=== PATIENT | male | born 1950 | race Caucasian/White ===

== ENCOUNTER 2021-06-10 09:26 | Inpatient (IN) ==
[~2021-06-10 09:26] MED LIST: ACETAMINOPHEN 500 MG TABLET PO ONE; ALVIMOPAN 12 MG CAPSULE ONE; FAMOTIDINE 20 MG TABLET PO ONE; GABAPENTIN 400 MG CAPSULE PO ONE; SODIUM PHOSPHATE ENEMA 133 ML BOTTLE RECTAL ONE; cefTRIAXone 1,000 MG VIAL ONE
[2021-06-10] MEDS ORDERED: SODIUM PHOSPHATE ENEMA 133 ML BOTTLE RECTAL ONE (09:31)
[2021-06-10] MEDS ORDERED: cefTRIAXone 1,000 MG in SODIUM CHLORIDE 0.9% 100 ML IV STA (09:32)
[2021-06-10] MEDS: ALVIMOPAN 12 MG CAPSULE PO SCH ×2 (10:00→22:49)
[2021-06-10] MEDS ORDERED: ALBUTEROL/IPRATROPIUM 3 ML NEB RESP TX ONE (10:19)
[2021-06-10] MEDS ORDERED: DIAZEPAM 5 MG TABLET PO ONE (10:19)
[2021-06-10] MEDS ORDERED: LACTATED RINGERS 1,000 ML IV SCH (10:30)
[2021-06-10] MEDS ORDERED: fentaNYL 100 MCG/2 ML VIAL ONE ×3 (12:07→20:50)
[2021-06-10] MEDS ORDERED: GLYCOPYRROLATE 0.4 MG/2 ML VIAL ONE (12:07)
[2021-06-10] MEDS ORDERED: DEXAMETHASONE 4 MG/1 ML VIAL ONE ×2 (12:07→16:35)
[2021-06-10] MEDS ORDERED: ONDANSETRON 4 MG/2 ML VIAL ONE (12:07)
[2021-06-10] MEDS ORDERED: SUCCINYLCHOLINE 200 MG/10 ML VIAL ONE (12:07)
[2021-06-10] MEDS ORDERED: ROCURONIUM 50 MG/5 ML VIAL IV ONE ×2 (12:07→16:35)
[2021-06-10] MEDS ORDERED: LIDOCAINE 2% 5 ML VIAL ONE (12:07)
[2021-06-10] MEDS ORDERED: propofoL 200 MG/20 ML VIAL IV ONE (12:07)
[2021-06-10] MEDS ORDERED: cefTRIAXone 1,000 MG VIAL ONE (12:52)
[2021-06-10] MEDS ORDERED: hydrALAZINE 20 MG/1 ML VIAL ONE (13:24)
[2021-06-10] MEDS ORDERED: LACTATED RINGERS 1,000 ML IV ONE ×3 (13:28→16:44)
[2021-06-10] MEDS ORDERED: SEVOFLURANE 1 UNIT/15 MINUTE INH ONE ×9 (13:28→16:34)
[2021-06-10 13:54] LABS: Bilirubin,Urine Negative (Negative); Blood, Urine Small mg/dL (Negative); Glucose,Urine (UA) Negative (Negative); Ketones,Urine Negative (Negative); Mucus,Urine Occasional /LPF (Occasional); Nitrite,Urine Negative (Negative); Protein,Urine Negative; RBC,Urine 3 /HPF (0-4); Squamous Epithelial Cell,Urine Occasional /HPF (0-10); Urine Appearance Slightly Hazy (Clear); Urine Color Yellow (Yellow); Urine Specific Gravity 1.015 (1.001-1.035); Urine Urobilinogen < 2.0 EU/DL (0.2-1.0)
[2021-06-10] MEDS ORDERED: PHENYLEPHRINE 10 MG/1 ML VIAL IV ONE ×2 (14:21→15:47)
[2021-06-10] MEDS ORDERED: METOPROLOL TARTRATE 5 MG/5 ML VIAL IV ONE ×4 (14:32→16:17)
[2021-06-10] MEDS ORDERED: ESMOLOL 100 MG/10 ML VIAL IV ONE ×2 (14:36→15:44)
[2021-06-10] MEDS ORDERED: SODIUM CHLORIDE 0.9% 250 ML IV ONE (16:36)
[2021-06-10] MEDS ORDERED: NON-FORMULARY MEDICATION (Chlorpheniramine-Phenylephrine [Ed A-Hist] 4-10 mg Tablet) PO PRN (16:44)
[2021-06-10] MEDS ORDERED: oxyCODONE/ACETAMINOPHEN 5-325 MG TABLET PO PRN (16:48)
[2021-06-10] MEDS ORDERED: AMIODARONE 150 MG/3 ML VIAL ONE ×2 (17:01→17:16)
[2021-06-10 18:03] LABS: Basophils % 0.2 % (0.0-0.8); Eosinophils % 0.1 % (0.00-10.9); Hematocrit 46.2 VOL% (42.0-52.0); Hemoglobin 14.6 GM/DL (14.0-18.0); Immature Granulocytes % 0.5 %; Immature Granulocytes Absolute 0.06 #; Mean Corpuscular HGB Conc 31.6 GM/DL (32-36); Mean Corpuscular Volume 97.5 FL (87-102); Mean Platelet Volume 10.6 FL (9.6-12.0); Monocytes % 3.9 % (1.7-12.7); Neutrophils % 87.3 % (38.7-73.9); Platelet Count 202 T/CUMM (130-400); Red Blood Count 4.74 MC/CUMM (3.8-5.5); Red Cell Distribution Width 13.4 % (9.3-17.3)
[2021-06-10] MEDS ORDERED: ONDANSETRON 4 MG/2 ML VIAL IV PRN (18:20)
[2021-06-10 18:22] LABS: Calcium 8.8 MG/DL (8.5-10.1); Osmolality,Calculated 283.4 MOS/KG (273-304); Potassium 3.6 MMOL/L (3.5-5.1)
[2021-06-10] MEDS: HYDROmorphone 2 MG/1 ML VIAL IV PRN ×4 (18:23→19:25)
[2021-06-10] MEDS ORDERED: NITROGLYCERIN DRIP 50 MG/250 ML BOTTLE IV PRN (20:10)
[2021-06-10] MEDS ORDERED: ASPIRIN 325 MG TABLET PO ONE (20:11)
[2021-06-10] MEDS ORDERED: METOPROLOL SUCCINATE XL 50 MG TABLET PO ONE (20:14)
[2021-06-10] MEDS ORDERED: ASPIRIN CHEW 81 MG TABLET PO ONE (20:14)
[2021-06-10] MEDS ORDERED: LIDOCAINE 1%/EPI INJ 20 ML VIAL ONE (20:34)
[2021-06-10] MEDS ORDERED: HEPARIN/NACL 0.9% 2 UNITS/ML 2,000 UNIT/1,000 ML BAG IV ONE (20:34)
[2021-06-10] MEDS ORDERED: MIDAZOLAM 2 MG/2 ML VIAL ONE (20:49)
[2021-06-10] MEDS ORDERED: ALVIMOPAN 12 MG CAPSULE PO SCH (21:00)
[2021-06-10] MEDS ORDERED: ENOXAPARIN 30 MG/0.3 ML SYRINGE ONE (21:04)
[2021-06-10] MEDS ORDERED: CLOPIDOGREL 300 MG TABLET ONE (21:13)
[2021-06-10] MEDS: OXYBUTYNIN XL 10 MG TABLET PO SCH (22:48)
[2021-06-10] MEDS: BUDESONIDE/FORMOTEROL 80-4.5 INHALER 6.9 GM INH SCH (22:49)
[2021-06-10] MEDS: oxyCODONE/ACETAMINOPHEN 5-325 MG TABLET PO PRN (22:52)
[2021-06-10] MEDS: SODIUM CHLORIDE 0.9% 1,000 ML IV SCH (22:53)
[2021-06-10 23:01] LABS: CKMB % 5.4 %
[2021-06-10 23:04] LABS: High Sensitive Troponin I* 57238.1 ng/L (0-78)
[2021-06-11] MEDS: HYDROmorphone 2 MG/1 ML VIAL IV PRN ×5 (02:22→22:17)
[2021-06-11] MEDS: ONDANSETRON 4 MG/2 ML VIAL IV PRN ×2 (02:42→09:05)
[2021-06-11 04:20] LABS: Hematocrit 39.3 VOL% (42.0-52.0); Hemoglobin 12.8 GM/DL (14.0-18.0); Immature Granulocytes % 0.4 %; Immature Granulocytes Absolute 0.03 #; Lymphocytes # 0.7 10*3/uL (1.4-4.0); Lymphocytes % 9.7 % (21.2-54.2); Mean Corpuscular HGB Conc 32.6 GM/DL (32-36); Mean Corpuscular Volume 94.2 FL (87-102); Mean Platelet Volume 11.1 FL (9.6-12.0); Monocytes % 13.7 % (1.7-12.7); Neutrophils % 76.2 % (38.7-73.9); Platelet Count 179 T/CUMM (130-400); Red Blood Count 4.17 MC/CUMM (3.8-5.5); Red Cell Distribution Width 13.7 % (9.3-17.3); White Blood Count 7.4 T/CUMM (4-12)
[2021-06-11 04:40] LABS: Calcium 7.9 MG/DL (8.5-10.1); Osmolality,Calculated 281.4 MOS/KG (273-304); Potassium 4.3 MMOL/L (3.5-5.1)
[2021-06-11 07:13] LABS: High Sensitive Troponin I* > 125000 ng/L (0-78)
[2021-06-11] MEDS: lisinopriL 10 MG TABLET PO SCH (08:51)
[2021-06-11] MEDS: MULTIVITAMIN (CENTRUM) TABLET PO SCH (08:51)
[2021-06-11] MEDS: ASPIRIN EC 81 MG TABLET PO SCH (08:51)
[2021-06-11] MEDS: PANTOPRAZOLE 40 MG TABLET PO SCH (08:51)
[2021-06-11] MEDS: OXYBUTYNIN XL 10 MG TABLET PO SCH (08:51)
[2021-06-11] MEDS: ALVIMOPAN 12 MG CAPSULE PO SCH ×2 (08:52→20:12)
[2021-06-11] MEDS: LORATADINE 10 MG TABLET PO SCH (08:52)
[2021-06-11] MEDS: BUDESONIDE/FORMOTEROL 80-4.5 INHALER 6.9 GM INH SCH ×2 (08:52→20:12)
[2021-06-11] MEDS ORDERED: METOPROLOL SUCCINATE XL 25 MG TABLET PO SCH (09:00)
[2021-06-11] MEDS ORDERED: CLOPIDOGREL 75 MG TABLET PO SCH (09:00)
[2021-06-11] MEDS: SODIUM CHLORIDE 0.9% 1,000 ML IV SCH ×3 (10:02→20:02)
[2021-06-11] MEDS: KRILL OM DHA EPA PHOSPHO AST PO SCH (10:25)
[2021-06-11] MEDS ORDERED: ALUM/MAG/SIMETH/LIDO VISC 1:1 30 ML BOTTLE PO ONE (10:31)
[2021-06-11 14:28] LABS: CKMB % 6.9 %
[2021-06-11] MEDS ORDERED: MAGNESIUM HYDROXIDE SUSP 30 ML UDCUP PO ONE (16:06)
[2021-06-11] MEDS: hydrALAZINE 20 MG/1 ML VIAL IV PRN (16:24)
[2021-06-11] MEDS: ATORVASTATIN 40 MG TABLET PO SCH (20:12)
[2021-06-11] MEDS: ACETAMINOPHEN 325 MG TABLET PO PRN (20:12)
[2021-06-12] MEDS: ACETAMINOPHEN 325 MG TABLET PO PRN (02:30)
[2021-06-12 04:51] LABS: Basophils % 0.1 % (0.0-0.8); Hematocrit 39.7 VOL% (42.0-52.0); Hemoglobin 13.1 GM/DL (14.0-18.0); Immature Granulocytes % 0.5 %; Immature Granulocytes Absolute 0.04 #; Lymphocytes # 1.2 10*3/uL (1.4-4.0); Lymphocytes % 14.6 % (21.2-54.2); Mean Corpuscular Volume 93.9 FL (87-102); Mean Platelet Volume 10.8 FL (9.6-12.0); Monocytes % 15.1 % (1.7-12.7); Neutrophils % 69.7 % (38.7-73.9); Platelet Count 148 T/CUMM (130-400); Red Blood Count 4.23 MC/CUMM (3.8-5.5); Red Cell Distribution Width 13.5 % (9.3-17.3); White Blood Count 8.5 T/CUMM (4-12)
[2021-06-12] MEDS: hydrALAZINE 20 MG/1 ML VIAL IV PRN (05:01)
[2021-06-12 05:28] LABS: Calcium 8.1 MG/DL (8.5-10.1); Osmolality,Calculated 281.3 MOS/KG (273-304); Potassium 3.9 MMOL/L (3.5-5.1)
[2021-06-12] MEDS: NITROGLYCERIN SL 0.4 MG TABLET SL PRN ×2 (06:04→06:10)
[2021-06-12] MEDS ORDERED: NITROGLYCERIN SL 0.4 MG TABLET SL ONE (06:04)
[2021-06-12] MEDS ORDERED: MORPHINE 2 MG/1 ML SYRINGE IV PRN (06:16)
[2021-06-12] MEDS ORDERED: MORPHINE 2 MG/1 ML SYRINGE IV ONE (06:31)
[2021-06-12] MEDS: METOPROLOL TARTRATE 5 MG/5 ML VIAL IV SCH ×6 (07:00→13:34)
[2021-06-12] MEDS ORDERED: CLOPIDOGREL 75 MG TABLET PO ONE (07:59)
[2021-06-12] MEDS: ALVIMOPAN 12 MG CAPSULE PO SCH ×2 (08:48→20:37)
[2021-06-12] MEDS: LORazepam 1 MG TABLET PO SCH ×2 (08:48→20:36)
[2021-06-12] MEDS: MULTIVITAMIN (CENTRUM) TABLET PO SCH (08:49)
[2021-06-12] MEDS: OXYBUTYNIN XL 10 MG TABLET PO SCH (08:49)
[2021-06-12] MEDS: lisinopriL 10 MG TABLET PO SCH (08:50)
[2021-06-12] MEDS: ASPIRIN EC 81 MG TABLET PO SCH (08:50)
[2021-06-12] MEDS: PANTOPRAZOLE 40 MG TABLET PO SCH (08:51)
[2021-06-12] MEDS: LORATADINE 10 MG TABLET PO SCH (08:51)
[2021-06-12 08:54] LABS: CKMB % 2.7 %
[2021-06-12 08:56] LABS: High Sensitive Troponin I* 46904.5 ng/L (0-78)
[2021-06-12] MEDS ORDERED: METOPROLOL SUCCINATE XL 50 MG TABLET PO SCH (09:00)
[2021-06-12] MEDS ORDERED: SERTRALINE 25 MG TABLET PO ONE (09:00)
[2021-06-12] MEDS: KRILL OM DHA EPA PHOSPHO AST PO SCH (09:01)
[2021-06-12] MEDS: BUDESONIDE/FORMOTEROL 80-4.5 INHALER 6.9 GM INH SCH ×2 (09:04→20:41)
[2021-06-12] MEDS: ONDANSETRON 4 MG/2 ML VIAL IV PRN (09:30)
[2021-06-12 11:13] LABS: CKMB % 2.6 %; High Sensitive Troponin I* 42776.4 ng/L (0-78)
[2021-06-12] MEDS: ALBUTEROL/IPRATROPIUM 3 ML NEB RESP TX SCH ×4 (11:28→21:00)
[2021-06-12] MEDS: ISOSORBIDE MONONITRATE 30 MG TABLET PO SCH (12:50)
[2021-06-12] MEDS: SODIUM CHLORIDE 0.9% 1,000 ML IV SCH (13:05)
[2021-06-12] MEDS: BISOPROLOL 5 MG TABLET PO SCH ×2 (15:07→20:38)
[2021-06-12] MEDS: GABAPENTIN 100 MG CAPSULE PO SCH ×3 (15:13→20:37)
[2021-06-12] MEDS: ATORVASTATIN 40 MG TABLET PO SCH (20:37)
[2021-06-12] MEDS: SERTRALINE 25 MG TABLET PO SCH (20:38)
[2021-06-12] MEDS ORDERED: METOPROLOL SUCCINATE XL 25 MG TABLET PO SCH (21:00)
[2021-06-12] MEDS ORDERED: BISOPROLOL 5 MG TABLET PO SCH (21:00)
[2021-06-12] MEDS ORDERED: ALUMINUM/MAGNES/SIMETH MAX STR 30 ML UDCUP PO PRN (21:43)
[2021-06-13] MEDS: hydrALAZINE 20 MG/1 ML VIAL IV PRN ×2 (04:57→10:43)
[2021-06-13] MEDS: ACETAMINOPHEN 325 MG TABLET PO PRN (05:03)
[2021-06-13 05:37] LABS: Basophils % 0.1 % (0.0-0.8); Eosinophils # 0.1 10*3/uL (0.0-0.87); Eosinophils % 0.6 % (0.00-10.9); Hematocrit 37.8 VOL% (42.0-52.0); Hemoglobin 12.3 GM/DL (14.0-18.0); Immature Granulocytes % 0.4 %; Immature Granulocytes Absolute 0.03 #; Lymphocytes % 12.8 % (21.2-54.2); Mean Corpuscular HGB Conc 32.5 GM/DL (32-36); Mean Corpuscular Volume 94.3 FL (87-102); Mean Platelet Volume 11.1 FL (9.6-12.0); Monocytes % 14.3 % (1.7-12.7); Neutrophils % 71.8 % (38.7-73.9); Platelet Count 142 T/CUMM (130-400); Red Blood Count 4.01 MC/CUMM (3.8-5.5); Red Cell Distribution Width 13.2 % (9.3-17.3); White Blood Count 8.1 T/CUMM (4-12)
[2021-06-13 05:48] LABS: Calcium 8.3 MG/DL (8.5-10.1); Osmolality,Calculated 277.5 MOS/KG (273-304); Potassium 3.5 MMOL/L (3.5-5.1)
[2021-06-13] MEDS: oxyCODONE/ACETAMINOPHEN 5-325 MG TABLET PO PRN (06:21)
[2021-06-13] MEDS: METOPROLOL TARTRATE 5 MG/5 ML VIAL IV SCH (07:18)
[2021-06-13] MEDS: ALBUTEROL/IPRATROPIUM 3 ML NEB RESP TX SCH ×4 (08:02→19:07)
[2021-06-13] MEDS: SODIUM CHLORIDE 0.9% 1,000 ML IV SCH ×4 (09:50→21:36)
[2021-06-13] MEDS: OXYBUTYNIN XL 10 MG TABLET PO SCH (09:51)
[2021-06-13] MEDS: ISOSORBIDE MONONITRATE 30 MG TABLET PO SCH (09:51)
[2021-06-13] MEDS: ASPIRIN EC 81 MG TABLET PO SCH (09:51)
[2021-06-13] MEDS: KRILL OM DHA EPA PHOSPHO AST PO SCH (09:51)
[2021-06-13] MEDS: LORazepam 1 MG TABLET PO SCH ×2 (09:51→21:34)
[2021-06-13] MEDS: MULTIVITAMIN (CENTRUM) TABLET PO SCH (09:51)
[2021-06-13] MEDS: ALVIMOPAN 12 MG CAPSULE PO SCH ×2 (09:51→21:35)
[2021-06-13] MEDS: LORATADINE 10 MG TABLET PO SCH (09:51)
[2021-06-13] MEDS: GABAPENTIN 100 MG CAPSULE PO SCH ×3 (09:51→21:35)
[2021-06-13] MEDS: lisinopriL 10 MG TABLET PO SCH (09:52)
[2021-06-13] MEDS: CLOPIDOGREL 75 MG TABLET PO SCH (09:52)
[2021-06-13] MEDS: BISOPROLOL 5 MG TABLET PO SCH ×2 (09:52→21:34)
[2021-06-13] MEDS: PANTOPRAZOLE 40 MG TABLET PO SCH (09:52)
[2021-06-13] MEDS: BUDESONIDE/FORMOTEROL 80-4.5 INHALER 6.9 GM INH SCH ×2 (09:52→21:35)
[2021-06-13] MEDS: LORazepam 2 MG/1 ML VIAL IV PRN ×2 (13:46→19:48)
[2021-06-13] MEDS: LORazepam 2 MG/1 ML VIAL IV SCH (13:52)
[2021-06-13] MEDS: ATORVASTATIN 40 MG TABLET PO SCH (21:35)
[2021-06-13] MEDS: SERTRALINE 25 MG TABLET PO SCH (21:35)
[2021-06-14 04:38] LABS: Basophils % 0.3 % (0.0-0.8); Eosinophils # 0.1 10*3/uL (0.0-0.87); Eosinophils % 1.7 % (0.00-10.9); Hematocrit 34.6 VOL% (42.0-52.0); Hemoglobin 11.5 GM/DL (14.0-18.0); Immature Granulocytes % 0.5 %; Immature Granulocytes Absolute 0.03 #; Mean Corpuscular HGB Conc 33.2 GM/DL (32-36); Mean Corpuscular Volume 93.5 FL (87-102); Mean Platelet Volume 11.3 FL (9.6-12.0); Monocytes % 15.8 % (1.7-12.7); Neutrophils % 66.7 % (38.7-73.9); Platelet Count 151 T/CUMM (130-400); Red Cell Distribution Width 13.3 % (9.3-17.3); White Blood Count 6.5 T/CUMM (4-12)
[2021-06-14 05:01] LABS: Calcium 7.9 MG/DL (8.5-10.1); Osmolality,Calculated 280.3 MOS/KG (273-304); Potassium 3.3 MMOL/L (3.5-5.1)
[2021-06-14 06:11] LABS: Eosinophils 2 % (0-10); Lymphocytes 15 % (20-55); Segmented Neutrophils 76 % (50-85); Total Cells Counted 100
[2021-06-14 06:12] LABS: Platelet Estimate Normal
[2021-06-14 06:15] LABS: Polychromasia Slight
[2021-06-14 06:16] LABS: Spherocytes Slight
[2021-06-14] MEDS: ALBUTEROL/IPRATROPIUM 3 ML NEB RESP TX SCH ×4 (07:26→20:02)
[2021-06-14] MEDS: SODIUM CHLORIDE 0.9% 1,000 ML IV SCH ×2 (09:30→14:57)
[2021-06-14] MEDS: GABAPENTIN 100 MG CAPSULE PO SCH ×3 (09:31→20:14)
[2021-06-14] MEDS: lisinopriL 10 MG TABLET PO SCH (09:31)
[2021-06-14] MEDS: OXYBUTYNIN XL 10 MG TABLET PO SCH (09:31)
[2021-06-14] MEDS: ASPIRIN EC 81 MG TABLET PO SCH (09:31)
[2021-06-14] MEDS: ALVIMOPAN 12 MG CAPSULE PO SCH ×2 (09:31→20:14)
[2021-06-14] MEDS: MULTIVITAMIN (CENTRUM) TABLET PO SCH (09:31)
[2021-06-14] MEDS: PANTOPRAZOLE 40 MG TABLET PO SCH (09:31)
[2021-06-14] MEDS: BISOPROLOL 5 MG TABLET PO SCH ×2 (09:31→20:14)
[2021-06-14] MEDS: CLOPIDOGREL 75 MG TABLET PO SCH (09:31)
[2021-06-14] MEDS: LORazepam 1 MG TABLET PO SCH ×2 (09:31→20:14)
[2021-06-14] MEDS: LORATADINE 10 MG TABLET PO SCH (09:31)
[2021-06-14] MEDS: KRILL OM DHA EPA PHOSPHO AST PO SCH (09:31)
[2021-06-14] MEDS: BUDESONIDE/FORMOTEROL 80-4.5 INHALER 6.9 GM INH SCH ×2 (09:31→20:17)
[2021-06-14] MEDS: hydrALAZINE 20 MG/1 ML VIAL IV PRN (14:57)
[2021-06-14] MEDS: oxyCODONE/ACETAMINOPHEN 5-325 MG TABLET PO PRN (20:06)
[2021-06-14] MEDS: SERTRALINE 25 MG TABLET PO SCH (20:14)
[2021-06-14] MEDS: ATORVASTATIN 40 MG TABLET PO SCH (20:14)
[2021-06-15 06:31] LABS: Basophils % 0.5 % (0.0-0.8); Eosinophils # 0.1 10*3/uL (0.0-0.87); Eosinophils % 2.1 % (0.00-10.9); Hematocrit 35.9 VOL% (42.0-52.0); Hemoglobin 11.9 GM/DL (14.0-18.0); Immature Granulocytes % 0.3 %; Immature Granulocytes Absolute 0.02 #; Lymphocytes # 1.4 10*3/uL (1.4-4.0); Lymphocytes % 21.8 % (21.2-54.2); Mean Corpuscular HGB Conc 33.1 GM/DL (32-36); Mean Corpuscular Volume 93.7 FL (87-102); Mean Platelet Volume 11.5 FL (9.6-12.0); Monocytes % 17.4 % (1.7-12.7); Neutrophils % 57.9 % (38.7-73.9); Platelet Count 180 T/CUMM (130-400); Red Blood Count 3.83 MC/CUMM (3.8-5.5); Red Cell Distribution Width 13.3 % (9.3-17.3); White Blood Count 6.6 T/CUMM (4-12)
[2021-06-15 06:57] LABS: Atypical Lymphocytes Few; Band Neutrophils 1 % (0-10); Eosinophils 4 % (0-10); Lymphocytes 21 % (20-55); Segmented Neutrophils 60 % (50-85); Total Cells Counted 100
[2021-06-15 06:58] LABS: Microcytosis 1+; Ovalocytes Slight; Platelet Estimate Adequate
[2021-06-15] MEDS: ALBUTEROL/IPRATROPIUM 3 ML NEB RESP TX SCH ×4 (07:32→19:48)
[2021-06-15 07:57] LABS: Calcium 8.2 MG/DL (8.5-10.1); Osmolality,Calculated 274.7 MOS/KG (273-304); Potassium 3.2 MMOL/L (3.5-5.1)
[2021-06-15 08:04] LABS: Albumin 2.6 G/DL (3.4-5.0)
[2021-06-15] MEDS ORDERED: CLOPIDOGREL 75 MG TABLET PO SCH (09:00)
[2021-06-15] MEDS ORDERED: lisinopriL 20 MG TABLET PO SCH (09:00)
[2021-06-15] MEDS: MULTIVITAMIN (CENTRUM) TABLET PO SCH (09:07)
[2021-06-15] MEDS: LORATADINE 10 MG TABLET PO SCH (09:07)
[2021-06-15] MEDS: CLOPIDOGREL 75 MG TABLET PO SCH (09:07)
[2021-06-15] MEDS: PANTOPRAZOLE 40 MG TABLET PO SCH (09:07)
[2021-06-15] MEDS: ALVIMOPAN 12 MG CAPSULE PO SCH (09:07)
[2021-06-15] MEDS: OXYBUTYNIN XL 10 MG TABLET PO SCH (09:07)
[2021-06-15] MEDS: ASPIRIN EC 81 MG TABLET PO SCH (09:07)
[2021-06-15] MEDS: BISOPROLOL 5 MG TABLET PO SCH ×2 (09:07→20:59)
[2021-06-15] MEDS: GABAPENTIN 100 MG CAPSULE PO SCH ×3 (09:07→20:59)
[2021-06-15] MEDS: BUDESONIDE/FORMOTEROL 80-4.5 INHALER 6.9 GM INH SCH ×2 (09:08→21:00)
[2021-06-15] MEDS: KRILL OM DHA EPA PHOSPHO AST PO SCH (09:35)
[2021-06-15] MEDS ORDERED: POTASSIUM CHLORIDE 20 MEQ TABLET PO ONE (09:42)
[2021-06-15] MEDS ORDERED: lisinopriL 10 MG TABLET PO ONE (09:44)
[2021-06-15] MEDS: LORazepam 1 MG TABLET PO SCH ×2 (10:13→20:59)
[2021-06-15] MEDS: POTASSIUM CHLORIDE 20 MEQ TABLET PO PRN ×2 (14:00→16:10)
[2021-06-15] MEDS: ATORVASTATIN 40 MG TABLET PO SCH (21:00)
[2021-06-15] MEDS: SERTRALINE 25 MG TABLET PO SCH (21:00)
[2021-06-16 04:20] LABS: Basophils % 0.4 % (0.0-0.8); Eosinophils # 0.2 10*3/uL (0.0-0.87); Eosinophils % 3.1 % (0.00-10.9); Hematocrit 34.8 VOL% (42.0-52.0); Hemoglobin 11.4 GM/DL (14.0-18.0); Immature Granulocytes % 0.3 %; Immature Granulocytes Absolute 0.02 #; Lymphocytes # 1.5 10*3/uL (1.4-4.0); Lymphocytes % 20.7 % (21.2-54.2); Mean Corpuscular HGB Conc 32.8 GM/DL (32-36); Mean Corpuscular Volume 94.6 FL (87-102); Mean Platelet Volume 11.2 FL (9.6-12.0); Neutrophils % 60.5 % (38.7-73.9); Platelet Count 189 T/CUMM (130-400); Red Blood Count 3.68 MC/CUMM (3.8-5.5); Red Cell Distribution Width 13.2 % (9.3-17.3); White Blood Count 7.1 T/CUMM (4-12)
[2021-06-16 04:30] LABS: Osmolality,Calculated 281.3 MOS/KG (273-304); Potassium 3.6 MMOL/L (3.5-5.1)
[2021-06-16] MEDS: ALBUTEROL/IPRATROPIUM 3 ML NEB RESP TX SCH ×2 (07:05→11:23)
[2021-06-16] MEDS: OXYBUTYNIN XL 10 MG TABLET PO SCH (08:10)
[2021-06-16] MEDS: ASPIRIN EC 81 MG TABLET PO SCH (08:11)
[2021-06-16] MEDS: MULTIVITAMIN (CENTRUM) TABLET PO SCH (08:11)
[2021-06-16] MEDS: CLOPIDOGREL 75 MG TABLET PO SCH (08:11)
[2021-06-16] MEDS: PANTOPRAZOLE 40 MG TABLET PO SCH (08:11)
[2021-06-16] MEDS: BISOPROLOL 5 MG TABLET PO SCH (08:11)
[2021-06-16] MEDS: GABAPENTIN 100 MG CAPSULE PO SCH (08:11)
[2021-06-16] MEDS: LORazepam 1 MG TABLET PO SCH (08:12)
[2021-06-16] MEDS: BUDESONIDE/FORMOTEROL 80-4.5 INHALER 6.9 GM INH SCH (08:12)
[2021-06-16] MEDS: LORATADINE 10 MG TABLET PO SCH (08:12)
[2021-06-16] MEDS: POTASSIUM CHLORIDE 20 MEQ TABLET PO PRN ×2 (08:12→10:13)
[2021-06-16] MEDS: KRILL OM DHA EPA PHOSPHO AST PO SCH (08:23)
[2021-06-16] MEDS ORDERED: SPIRONOLACTONE 25 MG TABLET PO SCH (09:00)
[2021-06-16] MEDS ORDERED: lisinopriL 10 MG TABLET PO SCH (09:00)
[2021-06-16 11:37] VITALS: BP 145/86
== END 2021-06-16 13:35 | disposition home or self-care (01) | DRG 248 ==
LOC: N.OR 09:26 → N.SDSINP 09:29 → N.CC 19:39 → N.2W 06-14 16:24
PROVIDERS: ADMIT Urology; ATTEND Urology
PROC: CLCCHCL (ICD-10-PCS; 2021-06-10 21:30)

== ENCOUNTER 2022-06-30 14:57 | Inpatient (IN) ==
[2022-06-30 15:18] VITALS: BP 169/100
[2022-06-30] MEDS ORDERED: HEPARIN/NACL 0.9% 2 UNITS/ML 2,000 UNIT/1,000 ML BAG IV ONE (15:21)
[2022-06-30] MEDS ORDERED: ASPIRIN 325 MG TABLET ONE (15:22)
[2022-06-30] MEDS ORDERED: CLOPIDOGREL 300 MG TABLET ONE (15:22)
[2022-06-30] MEDS ORDERED: ASPIRIN 325 MG TABLET PO STA (15:22)
[2022-06-30] MEDS ORDERED: HEPARIN 5,000 UNIT/1 ML VIAL ONE (15:22)
[2022-06-30] MEDS ORDERED: CLOPIDOGREL 300 MG TABLET PO STA (15:24)
[2022-06-30] MEDS ORDERED: HEPARIN 1,000 UNIT/1 ML VIAL IV STA (15:24)
[2022-06-30 15:27] LABS: Basophils % 0.5 % (0.0-0.8); Eosinophils # 0.2 10*3/uL (0.0-0.87); Eosinophils % 2.6 % (0.00-10.9); Hemoglobin 12.5 GM/DL (14.0-18.0); Immature Granulocytes % 0.5 %; Immature Granulocytes Absolute 0.03 #; Lymphocytes # 1.8 10*3/uL (1.4-4.0); Lymphocytes % 28.5 % (21.2-54.2); Mean Corpuscular HGB Conc 32.1 GM/DL (32-36); Mean Corpuscular Volume 90.5 FL (87-102); Mean Platelet Volume 10.5 FL (9.6-12.0); Monocytes # 0.6 10*3/uL (0.11-0.8); Monocytes % 9.9 % (1.7-12.7); Platelet Count 247 T/CUMM (130-400); Red Blood Count 4.31 MC/CUMM (3.8-5.5); Red Cell Distribution Width 13.8 % (9.3-17.3); White Blood Count 6.3 T/CUMM (4-12)
[2022-06-30] MEDS ORDERED: MIDAZOLAM 2 MG/2 ML VIAL ONE ×2 (15:29→15:49)
[2022-06-30] MEDS ORDERED: fentaNYL 100 MCG/2 ML VIAL ONE (15:29)
[2022-06-30] MEDS ORDERED: BISACODYL 5 MG TABLET PO PRN (15:40)
[2022-06-30] MEDS ORDERED: CALCIUM CARBONATE CHEW 500 MG TABLET PO PRN (15:40)
[2022-06-30] MEDS ORDERED: LACTULOSE 20 GM/30 ML UDCUP PO PRN (15:40)
[2022-06-30] MEDS ORDERED: ACETAMINOPHEN 325 MG TABLET PO PRN (15:40)
[2022-06-30] MEDS ORDERED: SIMETHICONE CHEW 125 MG TABLET PO PRN (15:40)
[2022-06-30] MEDS ORDERED: ZALEPLON 5 MG CAPSULE PO PRN (15:40)
[2022-06-30] MEDS ORDERED: MORPHINE 2 MG/1 ML SYRINGE IV PRN (15:40)
[2022-06-30] MEDS ORDERED: ONDANSETRON 4 MG/2 ML VIAL IV PRN (15:40)
[2022-06-30] MEDS ORDERED: ALUMINUM/MAGNES/SIMETH MAX STR 30 ML UDCUP PO PRN (15:40)
[2022-06-30] MEDS ORDERED: hydrALAZINE 20 MG/1 ML VIAL IV PRN (15:40)
[2022-06-30 15:45] LABS: Alanine Aminotransferase 24 U/L (16-61); Albumin 3.7 G/DL (3.4-5.0); Alkaline Phosphatase 79 U/L (45-117); Aspartate Amino Transferase 14 U/L (0-37); Bilirubin,Total < 0.39 MG/DL (0.20-1.00); Blood Urea Nitrogen 23 MG/DL (7-18); Calcium 9.2 MG/DL (8.5-10.1); Carbon Dioxide 29 MMOL/L (21-32); Chloride 111 MMOL/L (98-107); Glucose 94 MG/DL (74-106); Sodium 143 MMOL/L (136-145); Total Protein 6.6 G/DL (6.4-8.2)
[2022-06-30] MEDS ORDERED: NITROGLYCERIN SL 0.4 MG TABLET SL PRN (15:45)
[2022-06-30] MEDS ORDERED: NON-FORMULARY MEDICATION (Chlorpheniramine-Phenylephrine [Ed A-Hist] 4-10 mg Tablet) PO PRN (15:45)
[2022-06-30] MEDS ORDERED: SODIUM CHLORIDE 0.9% 1,000 ML IV SCH (16:30)
[2022-06-30] MEDS: BUDESONIDE/FORMOTEROL 80-4.5 INHALER 6.9 GM INH SCH (20:34)
[2022-06-30] MEDS: BISOPROLOL 5 MG TABLET PO SCH (20:34)
[2022-07-01 06:22] LABS: Basophils % 0.3 % (0.0-0.8); Eosinophils # 0.1 10*3/uL (0.0-0.87); Eosinophils % 1.7 % (0.00-10.9); Hematocrit 35.7 VOL% (42.0-52.0); Hemoglobin 11.5 GM/DL (14.0-18.0); Immature Granulocytes % 0.3 %; Immature Granulocytes Absolute 0.02 #; Lymphocytes # 1.4 10*3/uL (1.4-4.0); Lymphocytes % 18.1 % (21.2-54.2); Mean Corpuscular HGB Conc 32.2 GM/DL (32-36); Mean Corpuscular Volume 91.1 FL (87-102); Mean Platelet Volume 10.5 FL (9.6-12.0); Monocytes # 0.7 10*3/uL (0.11-0.8); Monocytes % 9.7 % (1.7-12.7); Neutrophils % 69.9 % (38.7-73.9); Platelet Count 211 T/CUMM (130-400); Red Blood Count 3.92 MC/CUMM (3.8-5.5); Red Cell Distribution Width 13.9 % (9.3-17.3); White Blood Count 7.5 T/CUMM (4-12)
[2022-07-01 06:58] LABS: Calcium 8.5 MG/DL (8.5-10.1); Osmolality,Calculated 283.1 MOS/KG (273-304); Potassium 3.8 MMOL/L (3.5-5.1); Risk Ratio 2.12; Thyroid Stimulating Hormone 2.67 uIU/ml (0.358-3.74); VLDL Cholesterol 6.6 MG/DL
[2022-07-01] MEDS: LORATADINE 10 MG TABLET PO SCH (09:41)
[2022-07-01] MEDS: ATORVASTATIN 40 MG TABLET PO SCH (09:41)
[2022-07-01] MEDS: MULTIVITAMIN (CENTRUM) TABLET PO SCH (09:41)
[2022-07-01] MEDS: BUDESONIDE/FORMOTEROL 80-4.5 INHALER 6.9 GM INH SCH ×2 (09:41→20:54)
[2022-07-01] MEDS: BISOPROLOL 5 MG TABLET PO SCH ×2 (09:41→20:53)
[2022-07-01] MEDS: SPIRONOLACTONE 25 MG TABLET PO SCH (09:41)
[2022-07-01] MEDS: ENOXAPARIN 40 MG/0.4 ML SYRINGE SUBCUT SCH (09:41)
[2022-07-01] MEDS: DAPAGLIFLOZIN 10 MG TABLET PO SCH (09:41)
[2022-07-01] MEDS: ASPIRIN EC 81 MG TABLET PO SCH (09:41)
[2022-07-01] MEDS: lisinopriL 20 MG TABLET PO SCH (09:41)
[2022-07-01] MEDS: CLOPIDOGREL 75 MG TABLET PO SCH (09:41)
[2022-07-01] MEDS: PANTOPRAZOLE 40 MG TABLET PO SCH (09:43)
[2022-07-01] MEDS: FLUTICASONE 50 MCG NASAL SPRAY 16 GM BOTTLE BOTH NARES SCH (12:00)
[2022-07-02 04:36] LABS: Basophils % 0.3 % (0.0-0.8); Eosinophils # 0.2 10*3/uL (0.0-0.87); Eosinophils % 2.5 % (0.00-10.9); Hematocrit 37.3 VOL% (42.0-52.0); Immature Granulocytes % 0.3 %; Immature Granulocytes Absolute 0.02 #; Lymphocytes # 1.6 10*3/uL (1.4-4.0); Lymphocytes % 24.7 % (21.2-54.2); Mean Corpuscular HGB Conc 32.2 GM/DL (32-36); Mean Corpuscular Volume 89.7 FL (87-102); Mean Platelet Volume 10.6 FL (9.6-12.0); Monocytes # 0.7 10*3/uL (0.11-0.8); Monocytes % 10.8 % (1.7-12.7); Neutrophils % 61.4 % (38.7-73.9); Platelet Count 211 T/CUMM (130-400); Red Blood Count 4.16 MC/CUMM (3.8-5.5); White Blood Count 6.4 T/CUMM (4-12)
[2022-07-02 04:52] LABS: Osmolality,Calculated 278.4 MOS/KG (273-304); Potassium 3.9 MMOL/L (3.5-5.1)
[2022-07-02] MEDS: BUDESONIDE/FORMOTEROL 80-4.5 INHALER 6.9 GM INH SCH (08:28)
[2022-07-02] MEDS: ENOXAPARIN 40 MG/0.4 ML SYRINGE SUBCUT SCH (08:29)
[2022-07-02] MEDS: FLUTICASONE 50 MCG NASAL SPRAY 16 GM BOTTLE BOTH NARES SCH (08:29)
[2022-07-02] MEDS: BISOPROLOL 5 MG TABLET PO SCH (08:30)
[2022-07-02] MEDS: DAPAGLIFLOZIN 10 MG TABLET PO SCH (08:30)
[2022-07-02] MEDS: lisinopriL 20 MG TABLET PO SCH (08:30)
[2022-07-02] MEDS: MULTIVITAMIN (CENTRUM) TABLET PO SCH (08:30)
[2022-07-02] MEDS: ASPIRIN EC 81 MG TABLET PO SCH (08:30)
[2022-07-02] MEDS: PANTOPRAZOLE 40 MG TABLET PO SCH (08:31)
[2022-07-02] MEDS: LORATADINE 10 MG TABLET PO SCH (08:31)
[2022-07-02] MEDS: CLOPIDOGREL 75 MG TABLET PO SCH (08:31)
[2022-07-02] MEDS: SPIRONOLACTONE 25 MG TABLET PO SCH (08:31)
[2022-07-02] MEDS: ATORVASTATIN 40 MG TABLET PO SCH (08:31)
[2022-07-02] MEDS ORDERED: carvediloL 6.25 MG TABLET PO SCH (17:00)
== END 2022-07-02 14:26 | disposition home or self-care (01) | DRG 247 ==
LOC: N.ED 14:57 → N.CC 15:30 → SUATTDRO 15:40
PROVIDERS: ADMIT Internal Medicine Interventional Cardiology; ATTEND Internal Medicine Interventional Cardiology
PROC: CLCCHCL (ICD-10-PCS; 2022-06-30 15:45)